=== PATIENT | male | born 1970 | race Caucasian/White ===

== ENCOUNTER 2016-11-24 08:35 | Emergency (ER) | payer OTHER ==
[~2016-11-24] VITALS: Ht 180.3 cm; Wt 95.0 kg
[2016-11-24 08:38] VITALS: Ht 180.3 cm; Wt 95.0 kg
[2016-11-24] MEDS ORDERED: LIDOCAINE/MYLANTA 40 ML BTL PO ONE (09:30)
--- NOTE | 2016-11-24 10:05 | ERD ---
ER Documentation Chief Complaint Date/Time DATE: 11/24/16 TIME: 10:03 Chief Complaint BILATERAL EAR PAIN X 1 MONTH, HEARTBURN X 1 YEAR HPI 46-year-old male complains of bilateral ear pain for 1 month, as well as acid reflux symptoms for 1 year. He describes achy pain in the ear, bilaterally. Denies any fevers, otorrhea, discharge. He also reports burning pain in his chest that goes upwards towards his neck, usually noted in the morning. He states that this is the same pain he has had for a year now. He denies any fevers, chills, vomiting, diarrhea. He denies chest pain or shortness of breath. ROS All systems reviewed and are negative except as per history of present illness. Allergies Allergies: Coded Allergies: No Known Allergy (Unverified , 11/24/16) PMhx/Soc Medical and Surgical Hx: pt denies Medical Hx History of Surgery: Yes (back surgery ) Anesthesia Reaction: No Hx Neurological Disorder: No Hx Respiratory Disorders: No Hx Cardiac Disorders: No Hx Psychiatric Problems: No Hx Miscellaneous Medical Probl: No Hx Alcohol Use: No Hx Substance Use: No Hx Tobacco Use: No Smoking Status: Never smoker Physical Exam Vitals Vital Signs Date Time Temp Pulse Resp B/P Pulse Ox O2 Delivery O2 Flow Rate FiO2 11/24/16 08:38 98.1 102 16 119/74 94 Physical Exam General: Well-developed, well-nourished. The patient appears in no acute distress. HEENT: Head is normocephalic, atraumatic. No scleral icterus. Pupils are equal , round, and reactive. Oral mucous membranes are moist. No pharyngeal erythema. Bilateral TMs are nonerythematous, there is slight fluid behind the TMs, there is no perforation, otorrhea or discharge, external ears are normal. Hearing is normal. Neck: Supple. Nontender. Lungs: Clear to auscultation. Normal air movement. Heart: Regular rate and rhythm. S1 and S2 are normal. No murmurs, gallops, or rubs. Abdomen: Soft, nontender, nondistended. Bowel sounds are normoactive. Extremities: No clubbing or cyanosis. Normal pulses. Moving extremities x 4. No weakness. Neurologic: Alert and oriented 3. No focal deficits. Skin: Normal turgor. No rash or lesions. Results 24 hrs Current Medications Medications (Trade) Dose Ordered Sig/Kenrick Route PRN Reason Start Time Stop Time Status Last Admin Dose Admin Miscellaneous Medication (Gi Cocktail (2)) 40 ml ONCE ONCE PO 11/24/16 09:30 11/24/16 09:31 DC 11/24/16 09:28 Procedures/MDM 46-year-old male comes in with bilateral otalgia, without evidence of otitis media, otitis externa, mastoiditis, tympanic membrane perforation, foreign body. There is cerumen to both ears however no evidence of cerumen impaction. There is fluid, patient will be given decongestants. He also presents with heartburn symptoms, worse after laying down for a year now. I doubt acute coronary syndrome, dissection, pulmonary embolus. He was given a GI cocktail reports to be feeling much better at this time will be given ranitidine. Patient does request an x-ray at this time, I did advise that we were not able to see esophageal changes, gastric changes with an x-ray or even CT scan. I have advised that if his symptoms do not improve with ranitidine, he may follow- up with GI outpatient for endoscopy. Departure Diagnosis: Primary Impression: Ear problem Additional Impression: Abdominal pain Condition: Good Patient Instructions: What Is Acid Reflux?, Common Middle Ear Problems BOAZ CAMILO PA-C Nov 24, 2016 10:04
== END 2016-11-24 10:30 | disposition home or self-care (01) ==
LOC: FTE 08:35
DX: H92.03 Otalgia, bilateral (principal); R10.9 Unspecified abdominal pain
CPT/HCPCS: Z7502; Z7610; 99282